=== PATIENT | female | born 1960 | race Two or more races ===

== ENCOUNTER 2017-05-15 22:07 | Emergency (ER) | payer OTHER ==
[2017-05-15 22:25] VITALS: RESP 20; TEMP 98
[2017-05-15] MEDS ORDERED: Amoxicillin-Clav 875-125 mg Tab PO STA (23:53)
--- NOTE | 2017-05-15 23:56 | C.PDOC ---
History Of Present Illness 56 yo female come in for evaluation of sore throat gradually developed for past 2-3 days. Today, pain with swallow. Otherwise, pt denies fever, chlils, headache , dizziness, drooling, neck pain, dyspnea, cough, SOB, wheezing, abd. pain, V/D , back pain, Ambulate to Ed for evaluation, not in any apparent distress. Time Seen by Provider: 05/15/17 22:28 Chief Complaint (Nursing): ENT Problem History Per: Patient Onset/Duration Of Symptoms: Gradual Past Medical History Reviewed: Historical Data, Nursing Documentation, Vital Signs Vital Signs: Last Vital Signs Temp 98 F 05/15/17 22:23 Pulse 68 05/15/17 22:23 Resp 20 05/15/17 22:23 BP 144/79 05/15/17 22:23 Pulse Ox 98 05/16/17 00:07 Family History: States: No Known Family Hx - Social History Hx Tobacco Use: Yes Hx Alcohol Use: No Hx Substance Use: No - Immunization History Hx Tetanus Toxoid Vaccination: No Hx Influenza Vaccination: No Hx Pneumococcal Vaccination: No Review Of Systems Except As Marked, All Systems Reviewed And Found Negative. Constitutional: Negative for: Fever, Chills ENT: Positive for: Nose Congestion, Throat Pain, Throat Swelling. Negative for : Ear Discharge, Nose Discharge Cardiovascular: Negative for: Chest Pain Respiratory: Negative for: Cough, Shortness of Breath, Wheezing Gastrointestinal: Negative for: Nausea, Vomiting, Abdominal Pain, Diarrhea Genitourinary: Negative for: Dysuria Musculoskeletal: Negative for: Neck Pain Skin: Negative for: Rash Neurological: Negative for: Weakness, Numbness, Headache, Dizziness Physical Exam - Physical Exam Appears: Well, No Acute Distress Skin: Normal Color, Warm, Dry, No Rash Eye(s): bilateral: PERRL Ear(s): Bilateral: Normal Nose: No Flaring, Discharge (clear, B/L) Oral Mucosa: Moist Tongue: Normal Appearing Lips: Normal Appearing Throat: Erythema (MOD B/L), No Drooling Neck: Trachea Midline, Supple Cardiovascular: Rhythm Regular Respiratory: No Decreased Breath Sounds, No Accessory Muscle Use, No Stridor, No Wheezing Gastrointestinal/Abdominal: Soft, No Tenderness, No Distention, No Guarding Extremity: Normal ROM, No Pedal Edema, No Deformity, No Swelling Neurological/Psych: Oriented x3, Normal Speech ED Course And Treatment O2 Sat by Pulse Oximetry: 98 Pulse Ox Interpretation: Normal Progress Note: On re-eval, pt is afebrile, hemodynamicaly stable. non-toxic. PulsEOx 98% RA. Neck: Supple, (-) meningeal sign. ENT: exam c/w acute pharyngitis. Lungs: CTA B/L, BS euqal B/L. Abd: benign. Pt advised, ref. to F /u with PMD in 2-3 days for re-eval. return if any new changes. Disposition Counseled Patient/Family Regarding: Studies Performed, Diagnosis, Need For Followup, Rx Given - Disposition Referrals: [facility] [Outside] Disposition Time: 23:53 Condition: STABLE Additional Instructions: Encourage fluids Take medication as prescribed Follow up with PMD in 2-3 days for re-evaluation. return to Ed if any worsening or new changes. Prescriptions: Amoxicillin/Clavulanate [Augmentin 875 MG-125 MG] 1 tab PO BID #14 tab Ibuprofen [Motrin] 1 tab PO TID PRN #14 tab PRN Reason: Pain Instructions: Pharyngitis (ED) Forms: [employer] ([place]) - Clinical Impression Clinical Impression: Pharyngitis
[2017-05-15] MEDS ORDERED: Amoxicillin-Clav 875-125 mg Tab PO ONE (23:59)
[2017-05-16 00:44] VITALS: BP 110/77; PULSE 73; O2SAT 99
== END 2017-05-16 00:30 | disposition home or self-care (01) ==
LOC: C.ER 22:07
DX: J02.9 Acute pharyngitis, unspecified (principal)

== ENCOUNTER 2017-06-09 20:14 | Emergency (ER) | payer OTHER ==
[2017-06-09 21:09] VITALS: BP 126/58; PULSE 83; TEMP 98.7; O2SAT 99
--- NOTE | 2017-06-09 21:55 | C.PDOC ---
History Of Present Illness 56 year old female presents to the ER with a complaint of chronic bilateral leg swelling, associated with itching and pain to the bilateral feet. Denies calf pain, recent trauma, weakness, numbness, or SOB. Time Seen by Provider: 06/09/17 21:26 Chief Complaint (Nursing): Lower Extremity Problem/Injury History Per: Patient History/Exam Limitations: no limitations Onset/Duration Of Symptoms: Days Current Symptoms Are (Timing): Still Present Recent travel outside of the [place]: No Past Medical History Reviewed: Historical Data, Nursing Documentation, Vital Signs Vital Signs: Last Vital Signs Temp 98.7 F 06/09/17 21:01 Pulse 83 06/09/17 21:01 Resp 20 06/09/17 22:27 BP 126/58 L 06/09/17 21:01 Pulse Ox 99 06/10/17 00:35 - Medical History PMH: HTN Family History: States: Unknown Family Hx - Social History Hx Tobacco Use: Yes Hx Alcohol Use: No Hx Substance Use: No - Immunization History Hx Tetanus Toxoid Vaccination: No Hx Influenza Vaccination: Yes Hx Pneumococcal Vaccination: No Review Of Systems Cardiovascular: Negative for: Chest Pain Respiratory: Negative for: Shortness of Breath Musculoskeletal: Positive for: Foot Pain, Other (Left swelling/itching) Neurological: Negative for: Weakness, Numbness Physical Exam - Physical Exam Appears: Non-toxic, No Acute Distress Skin: Warm, Dry Head: Atraumatic, Normacephalic Eye(s): bilateral: Normal Inspection, PERRL Oral Mucosa: Moist Chest: Symmetrical, No Tenderness Cardiovascular: Rhythm Regular Respiratory: Normal Breath Sounds, No Rales, No Rhonchi, No Wheezing Extremity: Normal ROM (x4), Pedal Edema (b/l), No Calf Tenderness, No Deformity , Other (Chronic skin hyperpigmentation to tibial ward area. No erythema or warmth) Neurological/Psych: Oriented x3, Normal Speech, Normal Motor, Normal Sensation Gait: Steady ED Course And Treatment O2 Sat by Pulse Oximetry: 99 (Room air) Pulse Ox Interpretation: Normal Progress Note: Patient advised to use supportive treatment for symptoms and to follow up with the clinic for further evaluation. Disposition Counseled Patient/Family Regarding: Diagnosis, Need For Followup, Rx Given - Disposition Referrals: [facility] [Outside] Disposition: HOME/ ROUTINE Disposition Time: 21:53 Condition: STABLE Additional Instructions: Please elevate legs Wear pressure dressing Follow up in clinic for workup Return to ER if symptoms worsen Instructions: Leg Edema (ED) Forms: [email or web address] ([place]) - Clinical Impression Clinical Impression: Bilateral edema of lower extremity - PA / MOSAIC TILER / Resident Statement MD/DO has reviewed & agrees with the documentation as recorded. - Scribe Statement The provider has reviewed the documentation as recorded by the Scribe Jonahton Story All medical record entries made by the Abramibze were at my direction and personally dictated by me. I have reviewed the chart and agree that the record accurately reflects my personal performance of the history, physical exam, medical decision making, and the department course for this patient. I have also personally directed, reviewed, and agree with the discharge instructions and disposition.
[2017-06-09 22:27] VITALS: RESP 20
== END 2017-06-09 22:27 | disposition home or self-care (01) ==
LOC: C.ER 20:14
DX: R60.0 Localized edema (principal); I10 Essential (primary) hypertension; Z87.891 Personal history of nicotine dependence

== ENCOUNTER 2017-07-14 00:46 | Emergency (ER) | payer OTHER ==
[2017-07-14 01:00] VITALS: BP 127/81; PULSE 92; RESP 18; TEMP 98.3; O2SAT 96
--- NOTE | 2017-07-14 02:34 | C.PDOC ---
History Of Present Illness The patient presents to the ED for evaluation of abdominal pain which began today. Patient describes a "burning" sensation. She also reports nausea and vomiting which has now resolved. She denies fever, chills, diarrhea, dysuria, hematuria. Time Seen by Provider: 07/14/17 02:34 Chief Complaint (Nursing): Abdominal Pain History Per: Patient History/Exam Limitations: no limitations Onset/Duration Of Symptoms: Hrs Current Symptoms Are (Timing): Still Present Severity: Mild Pain Scale Rating Of: 2 Location Of Pain/Discomfort: Epigastric Radiation Of Pain To:: None Quality Of Discomfort: Burning, "Pain" Associated Symptoms: Nausea, Vomiting. denies: Fever, Chills, Diarrhea, Urinary Symptoms Exacerbating Factors: None Alleviating Factors: None Last Bowel Movement: Today Recent travel outside of the [place]: No Additional History Per: Patient Abnormal Vaginal Bleeding: No Past Medical History Reviewed: Historical Data, Nursing Documentation, Vital Signs Vital Signs: Last Vital Signs Temp 98.3 F 07/14/17 00:58 Pulse 92 H 07/14/17 00:58 Resp 18 07/14/17 00:58 BP 127/81 07/14/17 00:58 Pulse Ox 96 07/14/17 04:39 - Medical History PMH: HTN (pt denies) Surgical History: No Surg Hx Family History: States: Unknown Family Hx - Social History Hx Tobacco Use: Yes Hx Alcohol Use: No Hx Substance Use: No - Immunization History Hx Tetanus Toxoid Vaccination: No Hx Influenza Vaccination: Yes Hx Pneumococcal Vaccination: No Review Of Systems Constitutional: Negative for: Fever, Chills Cardiovascular: Negative for: Chest Pain, Palpitations Respiratory: Negative for: Cough, Shortness of Breath Gastrointestinal: Positive for: Nausea, Vomiting, Abdominal Pain. Negative for : Diarrhea Genitourinary: Negative for: Dysuria, Frequency, Hematuria Skin: Negative for: Rash, Lesions, Jaundice, Bruising Neurological: Negative for: Weakness, Numbness Physical Exam - Physical Exam Appears: Non-toxic, No Acute Distress Skin: Warm, Dry Head: Normacephalic Eye(s): bilateral: Normal Inspection Oral Mucosa: Moist Neck: Supple Chest: Symmetrical, No Deformity, No Tenderness Cardiovascular: Rhythm Regular, No Murmur Respiratory: No Rales, No Rhonchi, No Wheezing Gastrointestinal/Abdominal: Soft, Tenderness (mild, mid-epigastric ), No Guarding, No Rebound Extremity: Normal ROM, Capillary Refill (less than 2 seconds ) Neurological/Psych: Oriented x3 Gait: Steady ED Course And Treatment O2 Sat by Pulse Oximetry: 96 (on RA) Pulse Ox Interpretation: Normal Progress Note: Pepcid PO administered. Reevaluation Time: 06:24 Reassessment Condition: Improved Disposition Counseled Patient/Family Regarding: Studies Performed, Diagnosis, Need For Followup, Rx Given - Disposition Disposition: HOME/ ROUTINE Disposition Time: 02:34 Condition: FAIR Prescriptions: Pantoprazole Sodium [Protonix] 20 mg PO DAILY #15 ect Instructions: Gastritis (DC) Forms: [employer] (Nepali) - Clinical Impression Clinical Impression: Abdominal pain, Gastritis - Scribe Statement The provider has reviewed the documentation as recorded by the Scribe (Jocelynn Cotto) Provider Attestation: All medical record entries made by the Scribe were at my direction and personally dictated by me. I have reviewed the chart and agree that the record accurately reflects my personal performance of the history, physical exam, medical decision making, and the department course for this patient. I have also personally directed, reviewed, and agree with the discharge instructions and disposition.
== END 2017-07-14 06:44 | disposition home or self-care (01) ==
LOC: C.ER 00:46
DX: K29.70 Gastritis, unspecified, without bleeding (principal); R10.13 Epigastric pain